=== PATIENT | male | born 1950 | race Caucasian/White ===

== ENCOUNTER 2016-07-12 12:27 | Day surgery (SDC) | payer BC ==
[~2016-07-12] VITALS: Ht 180.3 cm; Wt 95.0 kg
[~2016-07-12 12:27] MED LIST: ADVIL200 MG PO; TOBREX5 ML RIGHT EYE
[2016-07-12 12:48] VITALS: BP 177/106
[2016-07-12 18:20] VITALS: BP 179/93
[2016-07-12 19:07] VITALS: BP 158/91
== END 2016-07-12 19:16 | disposition home or self-care (01) ==
LOC: SDC 12:27
PROC: 3E0C329 Introduction of Other Anti-infective into Eye, Percutaneous Approach (ICD-10-PCS; principal; 2016-07-12)
PROC: 3E0C33Z Introduction of Anti-inflammatory into Eye, Percutaneous Approach (ICD-10-PCS; principal; 2016-07-12)
PROC: 08T43ZZ Resection of Right Vitreous, Percutaneous Approach (ICD-10-PCS; principal; 2016-07-12)
DX: H33.031 Retinal detachment with giant retinal tear, right eye (principal); F41.9 Anxiety disorder, unspecified
CPT/HCPCS: J0690; J1100; J3010; J3300